=== PATIENT | female | born 1945 | race Two or more races ===

== ENCOUNTER 2019-04-03 17:03 | Emergency (ER) | payer OTHER ==
[~2019-04-03] VITALS: Ht 162.6 cm; Wt 80.7 kg
[2019-04-03] MEDS ORDERED: XARELTO20 MG (17:20)
[2019-04-03] MEDS ORDERED: NORVASC5 MG (17:20)
== END 2019-04-03 19:20 | disposition home or self-care (01) ==
LOC: ER 17:03
DX: M79.621 Pain in right upper arm (principal)

== ENCOUNTER 2019-11-05 08:49 | Outpatient (CLI) | payer OTHER ==
[~2019-11-05 08:49] MED LIST: NORVASC5 MG; XARELTO20 MG
== END 2019-11-05 09:13 | disposition home or self-care (01) ==
LOC: SONOGRAMA 08:49
PROVIDERS: ATTEND Internal Medicine Gastroenterology
DX: R10.84 Generalized abdominal pain (principal)